=== PATIENT | male | born 1990 | race Caucasian/White ===

== ENCOUNTER 2022-01-21 14:58 | Emergency (ER) | payer BC | END 2022-01-21 22:58 | disposition home or self-care (01) | LOC: ER1 14:58 | DX: S50.02XA Contusion of left elbow, initial encounter (principal); R40.2410 Glasgow coma scale score 13-15, unspecified time; V00.138A Other skateboard accident, initial encounter | CPT/HCPCS: 70450; 73060; 73080; 73090; 73110; 99284 ==